=== PATIENT | male | born 1945 | race Caucasian/White ===

== ENCOUNTER 2019-01-22 01:38 | Emergency (ER) | payer MEDICARE, BC ==
[~2019-01-22] VITALS: Ht 182.9 cm; Wt 84.8 kg
[~2019-01-22 01:38] MED LIST: ALPR0.5T PO; ARIP10TA9 PO; ASPI-1169 PO; ATEN25TA PO; BUPR-51 PO; CLOP75TA15 PO; ESOM40CA PO; HYDR-3974 PO; METH10OR11 PO; NITR0.4T SL; OMEG10006 PO; PRAV20TA4 PO; TRAZ-182 PO; UBID100C45 PO
--- NOTE | 2019-01-22 01:48 | NUR ---
TO BED 4 BIB PARAMEDICS C/O INTERMITTENT NONRADIATING CHEST PRESSURE 6/10 X3 DAYS, PAIN FREE UPON ARRIVAL TO ER. PT WAS GIVEN ASPIRIN 162MG PO AND NITRO 1 SPRAY BY EMS CONGRESSIONAL DISTRICT AIDE. SKIN WARM NONDIAPHORETIC. PT AAOX4 NO ACUTE DISTRESS NOTED, RESP EVEN AND UNLABORED. PLACE PT ON CARDIAC MONITORING, CONTINUOUS POX. PENDING ER MD LIN. SL 20G TO [facility] CONGRESSIONAL DISTRICT AIDE.
--- NOTE | 2019-01-22 01:48 | NUR ---
Note undone in EDM - 01/22/19 at 0319 by TARUN TO BED 4 BIB PARAMEDICS C/O INTERMITTENT NONRADIATING CHEST PRESSURE 11/22 SINCE 2129, PAIN FREE UPON ARRIVAL TO ER. PT WAS GIVEN ASPIRIN 162MG PO AND NITRO 1 SPRAY BY EMS RECONCILIATION MANAGER. SKIN WARM NONDIAPHORETIC. PT AAOX4 NO ACUTE DISTRESS NOTED, RESP EVEN AND UNLABORED. PLACE PT ON CARDIAC MONITORING, CONTINUOUS POX. PENDING ER MD LIN. SL 20G TO [facility] RECONCILIATION MANAGER.
--- NOTE | 2019-01-22 02:20 | NUR ---
BLOOD DRAWN BY DIRECTOR INFORMATION.
[2019-01-22 02:33] LABS: BASOPHILS % (AUTO) 0.6 % (0.0-2.0); EOSINOPHILS % (AUTO) 2.1 % (0.0-6.0); HEMATOCRIT 35 % (39-51); LYMPHOCYTES # (AUTO) 0.7 /CMM (0.8-4.8); LYMPHOCYTES % (AUTO) 10.8 % (20.0-44.0); MEAN CORPUSCULAR HGB CONC 35 g/dl (31.0-36.0); MEAN CORPUSCULAR VOLUME 90 fL (80-96); MONOCYTES # (AUTO) 0.4 /CMM (0.1-1.30); NEUTROPHILS % (AUTO) 79.5 % (43.0-81.0); PLATELET COUNT (AUTO) 184 /CMM (150-450); RED BLOOD CELL COUNT(AUTO) 3.86 MIL/uL (4.5-6.0); WHITE BLOOD COUNT (AUTO) 6.4 K/uL (4.3-11.0)
[2019-01-22 02:46] LABS: CALCIUM, SERUM 8.4 mg/dL (8.5-10.1); CARBON DIOXIDE 29 mmol/L (21-32); CHLORIDE 98 mmol/L (98-107); GLUCOSE 113 mg/dL (74-106); POTASSIUM 4.5 mmol/L (3.5-5.1); SODIUM SERUM 132 mmol/L (136-145); UREA NITROGEN, BLOOD 12 mg/dL (7-18)
--- NOTE | 2019-01-22 03:22 | NUR ---
ER MD AT BEDSIDE TALKING TO PT REGARIDNG LAB RESULTS. PENDING DISPOSITION.
--- NOTE | 2019-01-22 03:51 | NUR ---
IV removed. Catheter intact and site benign. Pressure and 4x4 applied to site. No bleeding noted. Patient discharged to home in stable condition. Written and verbal after care instructions given. Patient verbalizes understanding of instruction. ambulatory with a steady gait noted. pt aaox4 no acute distress noted, resp even and unlabored. pt remains pain free at this time.
[2019-01-22 03:52] VITALS: BP 144/75
== END 2019-01-22 03:53 | disposition home or self-care (01) ==
LOC: ER 02:28
DX: R07.89 Other chest pain (principal); I10 Essential (primary) hypertension; I25.2 Old myocardial infarction; I48.91 Unspecified atrial fibrillation; I25.10 Atherosclerotic heart disease of native coronary artery without angina pectoris; J45.909 Unspecified asthma, uncomplicated; Z98.890 Other specified postprocedural states; Z95.818 Presence of other cardiac implants and grafts; Z88.6 Allergy status to analgesic agent; Z88.5 Allergy status to narcotic agent; Z79.82 Long term (current) use of aspirin; Z79.899 Other long term (current) drug therapy
CPT/HCPCS: 36415; 71045-TC; 80048-TC; 84484-TC; 85025-TC

== ENCOUNTER 2019-07-14 23:35 | Inpatient (IN) | payer MEDICARE, BC ==
[~2019-07-14] VITALS: Ht 180.3 cm; Wt 86.2 kg
--- NOTE | 2019-07-14 23:45 | NUR ---
DR BENSON AT BEDSIDE
--- NOTE | 2019-07-14 23:45 | NUR ---
PT [id number] C/O MIDSTERNAL CHEST PAIN RADIATING TO L SHOUDER AND BACK, PRESSURE LIKE 7/10 SINCE 2229. NAUSEA, SOB. GIVEN 1 SPRAY NITRO 0.4 AND ASA 325.PT AAOX4, BREATHING EVEN ADN UNLABORED ON RA W/ NAD NOTED. PT CONNECTED TO THE MONITOR AND POX
--- NOTE | 2019-07-14 23:50 | NUR ---
XRAY AT BEDSIDE
[2019-07-14 23:54] LABS: BASOPHILS % (AUTO) 0.5 % (0.0-2.0); HEMATOCRIT 38 % (39-51); HEMOGLOBIN 12.9 g/dL (13.5-17.5); LYMPHOCYTES # (AUTO) 1.1 /CMM (0.8-4.8); LYMPHOCYTES % (AUTO) 15.8 % (20.0-44.0); MEAN CORPUSCULAR HGB CONC 34 g/dl (31.0-36.0); MEAN CORPUSCULAR VOLUME 92 fL (80-96); MONOCYTES # (AUTO) 0.7 /CMM (0.1-1.30); MONOCYTES % (AUTO) 10.1 % (2.0-12.0); NEUTROPHILS # (AUTO) 4.8 /CMM (1.8-8.9); NEUTROPHILS % (AUTO) 71.6 % (43.0-81.0); PLATELET COUNT (AUTO) 166 /CMM (150-450); RED BLOOD CELL COUNT(AUTO) 4.13 MIL/uL (4.5-6.0); WHITE BLOOD COUNT (AUTO) 6.7 K/uL (4.3-11.0)
--- NOTE | 2019-07-14 23:57 | NUR ---
EKG AT BEDSIDE
[2019-07-14] MEDS ORDERED: hydrALAZINE HCL IV 20 MG VIAL ONE (23:59)
[2019-07-15] MEDS ORDERED: hydrALAZINE HCL IV 20 MG VIAL IV ONE
[2019-07-15 00:02] LABS: CALCIUM, SERUM 9.1 mg/dL (8.5-10.1); CARBON DIOXIDE 31 mmol/L (21-32); CHLORIDE 96 mmol/L (98-107); CREATININE 0.8 mg/dL (0.6-1.3); GLUCOSE 88 mg/dL (74-106); POTASSIUM 4.5 mmol/L (3.5-5.1); SODIUM SERUM 130 mmol/L (136-145); UREA NITROGEN, BLOOD 11 mg/dL (7-18)
[2019-07-15 00:13] LABS: ALANINE AMINOTRANSFERASE 24 U/L (12-78); ALBUMIN 3.9 g/dL (3.4-5.0); ALKALINE PHOSPHATASE 103 U/L (46-116); ASPARTATE AMINOTRANSFERASE 26 U/L (15-37); B-TYPE NATRIURETIC PEPTIDE 195 PG/ML (0-125); BILIRUBIN,DIRECT 0.1 mg/dL (0.0-0.2); BILIRUBIN,TOTAL 0.5 mg/dL (0.2-1.0); TOTAL PROTEIN, SERUM 6.8 g/dL (6.4-8.2)
--- NOTE | 2019-07-15 00:42 | NUR ---
BED ASSIGNMENT 326-2
[2019-07-15] MEDS ORDERED: ACETAMINOPHEN 325 MG TABLET PO PRN (01:00)
[2019-07-15] MEDS ORDERED: ALPRAZOLAM 0.5 MG TABLET PO PRN (01:00)
[2019-07-15] MEDS ORDERED: TRAZODONE 50 MG TABLET PO PRN (01:00)
[2019-07-15] MEDS ORDERED: NITROGLYCERIN 0.4 MG/TAB BOTTLE SL PRN (01:00)
[2019-07-15] MEDS ORDERED: ONDANSETRON HCL/PF 4 MG/2 ML VIAL IVP PRN (01:00)
--- NOTE | 2019-07-15 01:53 | NUR ---
REPORT GIVEN TO MARY BEASLEY
--- NOTE | 2019-07-15 02:26 | NUR ---
pt transferred to room in stable condition
[2019-07-15 02:56] VITALS: BP 144/75
[2019-07-15] MEDS: ALPRAZOLAM 0.5 MG TABLET PO PRN (03:15)
[2019-07-15] MEDS: TRAZODONE 50 MG TABLET PO PRN (03:16)
[2019-07-15 04:37] VITALS: BP 145/75
[2019-07-15] MEDS ORDERED: HYDROCODONE/APAP 5/325MG 1 EACH TABLET PO SCH (06:00)
[2019-07-15] MEDS ORDERED: METHADONE HCL 10 MG/ML PO SCH (06:00)
[2019-07-15 06:18] LABS: BASOPHILS % (AUTO) 0.3 % (0.0-2.0); EOSINOPHILS % (AUTO) 1.7 % (0.0-6.0); HEMATOCRIT 39 % (39-51); HEMOGLOBIN 13.3 g/dL (13.5-17.5); LYMPHOCYTES # (AUTO) 1.1 /CMM (0.8-4.8); LYMPHOCYTES % (AUTO) 17.2 % (20.0-44.0); MEAN CORPUSCULAR HGB CONC 34 g/dl (31.0-36.0); MEAN CORPUSCULAR VOLUME 91 fL (80-96); MONOCYTES # (AUTO) 0.6 /CMM (0.1-1.30); MONOCYTES % (AUTO) 8.7 % (2.0-12.0); NEUTROPHILS # (AUTO) 4.6 /CMM (1.8-8.9); NEUTROPHILS % (AUTO) 72.1 % (43.0-81.0); PLATELET COUNT (AUTO) 158 /CMM (150-450); RED BLOOD CELL COUNT(AUTO) 4.26 MIL/uL (4.5-6.0); WHITE BLOOD COUNT (AUTO) 6.3 K/uL (4.3-11.0)
--- NOTE | 2019-07-15 06:53 | NUR ---
FOAM DISPENSER NOTES AWAKE & RESPONSIVE. NOT IN ANY DISTRESS. NO SOB NOTED. DENIES ANY PAIN OR DISCOMFORT AT THIS TIME. ON TELE SR @ 60 WITH IV-HL PATENT & INTACT. MONITORED ACCORDINGLY. CALL LIGHT WITHIN REACH. BED IN LOWEST POSITION. SR UP X 2 FOR SAFETY. WILL ENDORSE TO NEXT SHIFT.
[2019-07-15 07:06] LABS: ALANINE AMINOTRANSFERASE 22 U/L (12-78); ALBUMIN 3.9 g/dL (3.4-5.0); ALKALINE PHOSPHATASE 91 U/L (46-116); ASPARTATE AMINOTRANSFERASE 24 U/L (15-37); BILIRUBIN,TOTAL 0.8 mg/dL (0.2-1.0); CALCIUM, SERUM 9.1 mg/dL (8.5-10.1); CARBON DIOXIDE 26 mmol/L (21-32); CHLORIDE 96 mmol/L (98-107); CREATININE 0.9 mg/dL (0.6-1.3); GLUCOSE 78 mg/dL (74-106); PHOSPHORUS 3.4 mg/dL (2.5-4.9); POTASSIUM 4.2 mmol/L (3.5-5.1); SODIUM SERUM 131 mmol/L (136-145); TOTAL PROTEIN, SERUM 6.6 g/dL (6.4-8.2); UREA NITROGEN, BLOOD 10 mg/dL (7-18)
[2019-07-15 07:16] LABS: CHOLESTEROL 142 mg/dL (<200); HDL CHOLESTEROL 82 mg/dL (40-60); LDL 52 mg/dL (0-99); THYROID STIMULATING HORMONE 3.254 uIU/mL (0.358-3.74); TRIGLYCERIDES 27 mg/dL (30-150)
[2019-07-15] MEDS: PANTOPRAZOLE 40 MG TABLET.DR PO SCH (07:51)
[2019-07-15 08:00] VITALS: BP 121/58
--- NOTE | 2019-07-15 08:00 | NUR ---
Selene/RN Opening Note Received Patient in bed, AO x 4, able to responds all stimuli. No s/s of respiratory distress, skin is warm to touch clean/dry, intact IV site. Pt signed on CT angiogram consent form. keep lower position if bed with elevated HOB. Call light within reach, will continue to monitor.
[2019-07-15] MEDS ORDERED: PRAVASTATIN SODIUM 20 MG TABLET PO SCH (09:00)
[2019-07-15] MEDS ORDERED: Medication Not On Formulary EA (Esomeprazole Mag Trihydrate (Nexium) 40 MG) PO SCH (09:00)
[2019-07-15] MEDS ORDERED: Medication Not On Formulary EA (Ubidecarenone (Co Q-10) 100 MG) PO SCH (09:00)
[2019-07-15] MEDS ORDERED: OMEGA PO SCH (09:00)
[2019-07-15] MEDS ORDERED: FATTY ACIDS PO SCH (09:00)
[2019-07-15] MEDS: BUPROPION XL 150 MG TAB.ER.24 PO SCH (09:13)
[2019-07-15] MEDS: ASPIRIN 81 MG TAB.CHEW PO SCH (09:14)
[2019-07-15] MEDS: CLOPIDOGREL BISULFATE 75 MG TABLET PO SCH (09:14)
[2019-07-15] MEDS: ATORVASTATIN 10 MG TABLET PO SCH (09:14)
[2019-07-15] MEDS: ATENOLOL 25 MG TABLET PO SCH (09:14)
[2019-07-15] MEDS ORDERED: ATOR20TA PO (10:20)
[2019-07-15] MEDS ORDERED: VALS80TA31 PO (10:20)
[2019-07-15] MEDS ORDERED: ALBU18HF2 IH (10:20)
[2019-07-15] MEDS ORDERED: MONT10TA22 PO (10:20)
[2019-07-15] MEDS ORDERED: RANI300T4 PO (10:20)
--- NOTE | 2019-07-15 11:00 | NUR ---
Patient left to CT angiogram in stable condition, accompanied by staffs.
[2019-07-15] MEDS ORDERED: METOPROLOL TARTRATE INJ 5 MG/5 ML AMPUL IVP PRN (11:30)
[2019-07-15] MEDS ORDERED: IV NS 0.9% 500 ML IV ONE (11:30)
[2019-07-15] MEDS ORDERED: NITROGLYCERIN 0.4 MG/TAB BOTTLE SL ONE (11:30)
[2019-07-15] MEDS ORDERED: NITROGLYCERIN 0.4 MG/TAB BOTTLE ONE (11:41)
[2019-07-15] MEDS ORDERED: IOHEXOL-350 100 ML VIAL IV ONE (11:47)
[2019-07-15] MEDS ORDERED: IV NS 0.9% 250 ML IV ONE (11:47)
[2019-07-15 12:00] VITALS: BP 110/57
--- NOTE | 2019-07-15 12:00 | NUR ---
Patient back from CT angiogram, denies any discomfort, in stable condition.
[2019-07-15] MEDS ORDERED: ALBUTEROL FS 2.5 MG/3 ML VIAL.NEB NEB PRN (13:30)
[2019-07-15 16:00] VITALS: BP 126/45
--- NOTE | 2019-07-15 18:30 | NUR ---
Tele/RN Closing note Patient in bed comfortably, denies any chest pain or discomfort, no s/s of allergic reaction from angio gram, skin is warm to touch, clean/dry. Respiratory even and unlabored, keep lower position of bed with elevated HOB. Call light within reach, will endorse to care analyst.
[2019-07-15 20:00] VITALS: BP 132/76
[2019-07-15] MEDS: FAMOTIDINE (20 MG) 20 MG TABLET PO SCH (21:21)
[2019-07-15] MEDS ORDERED: ATORVASTATIN 10 MG TABLET PO SCH (22:00)
--- NOTE | 2019-07-15 22:09 | NUR ---
RN NOTES: ROOM MOVE FROM 326-2 TO 308-2, EXPLAINED TO HIM THE REASON FOR ROOM CHANGE, HE AGREED, PATIENT AND BELONGINGS TRANSFERRED TO 308-2.
--- NOTE | 2019-07-15 23:58 | NUR ---
RN NOTES: HE IS STILL AWAKE READING HIS NOTES, CALLED TO SEE HIM HE VERBALIZED HE FELT PAIN ON THE CENTRAL CHEST ARE, LIKE CRAMPING PAIN, RADIATING TO THE LEFT SIDE OF THE SHOULDER AND HE FEEL A BIT NAUSEATED, V/S CHECKED BP-167/73 DC-58 SINUS BRADYCARDIA SPO2-99% ROOM AIR. NITRO SL GIVEN.
[2019-07-16] VITALS: BP 135/77
--- NOTE | 2019-07-16 00:05 | NUR ---
RN NOTES: RE-ASSESSED HE VERBALIZED HE FEELS MUCH BETTER, THE PAIN SUBSIDE, HE STILL FEEL A LITTLE NAUSEATED, HE REQUEST NOT TO GIVE THE SECOND DOSE OF NITRO HE WANTS TO BE RE-ASSES AGAIN IN 5 MIN.
--- NOTE | 2019-07-16 00:12 | NUR ---
RN NOTES: -DR. COREAS NOTIFIED ABOUT PATIENT CHEST PAIN AND BP-167/73 WI-58, HE ORDERED TO DISCONTINUE PRN METOPROLOL AND CHANGE TO HYDRALAZINE 25 MG Q6H PRN FOR SBP.150, NOTED AND CARRIED OUT -0015-PHARMACY CALLED AND SPOKE WITH TUAN NOTIFIED ABOUT PMD NEW ORDER, IT WILL BE RELEASE IN [place].
[2019-07-16] MEDS ORDERED: hydrALAZINE HCL 25 MG TABLET PO PRN (00:30)
--- NOTE | 2019-07-16 00:30 | NUR ---
RN NOTES: PRN MEDS RELEASE IN [place], PATIENT RE-ASSESSED, HE CLAIMED PAIN SUBSIDE, RE-CHECKED BP-134/74 OK-54, HYDRALAZINE IS FOR SBP>150, NOT GIVEN RETURNED BACK IN [place]. EXPLAINED TO PATIENT. -HE REQUEST FOR HIS PRN TRAZADONE AND ANTI ANXIETY. -GIVEN WITH INTERVALS.
[2019-07-16] MEDS: TRAZODONE 50 MG TABLET PO PRN (00:43)
[2019-07-16] MEDS: ALPRAZOLAM 0.5 MG TABLET PO PRN (00:43)
--- NOTE | 2019-07-16 01:44 | NUR ---
RN NOTES: -ABLE TO REST AND SLEEP, CALL LIGHT WITHIN EASY REACH, BED LOW AND LOCKED,SIDE RAILS UPX2, ON CLOSE WATCH.
[2019-07-16 04:00] VITALS: BP 130/70
[2019-07-16 04:47] VITALS: BP 130/70
--- NOTE | 2019-07-16 06:39 | NUR ---
RN NOTES: AWAKE, HE CLAIMED HE WAS ABLE TO SLEEP AND REST UNLIKE THE OTHER NIGHT HE DID NOT SLEEP BECAUSE OF HIS ROOM MATE, NO CHEST PAIN OR ANY DISCOMFORT.LATEST HR-50, SINUS BRADYCARDIA, ENDORSED FOR CONTINUITY OF CARE.CALL LIGHT WITHIN EASY REACH.
--- NOTE | 2019-07-16 07:35 | NUR ---
TELE/RN OPENING NOTES RECEIVED PATIENT AWAKE AND ORIENTED X4. NO CHEST PAIN OR ANY DISCOMFORT. LATEST HR-46, SINUS BRADYCARDIA, BED IN LOWEST POSITION AND LOCKED. SIDE RAILS UP X2. CALL LIGHT WITHIN EASY REACH. WILL CONTINUE TO MONITOR.
[2019-07-16] MEDS: PANTOPRAZOLE 40 MG TABLET.DR PO SCH (07:47)
[2019-07-16 08:00] VITALS: BP 130/71
--- NOTE | 2019-07-16 08:02 | NUR ---
TELE/RN NOTES PATIENT IS ON MS PER MD ORDER.
[2019-07-16] MEDS: ATORVASTATIN 10 MG TABLET PO SCH (08:12)
[2019-07-16] MEDS: CLOPIDOGREL BISULFATE 75 MG TABLET PO SCH (08:15)
[2019-07-16] MEDS: ASPIRIN 81 MG TAB.CHEW PO SCH (08:15)
[2019-07-16 08:16] VITALS: BP 130/71
[2019-07-16] MEDS: FAMOTIDINE (20 MG) 20 MG TABLET PO SCH (08:16)
[2019-07-16] MEDS: ATENOLOL 25 MG TABLET PO SCH (08:16)
[2019-07-16] MEDS: BUPROPION XL 150 MG TAB.ER.24 PO SCH (08:16)
[2019-07-16] MEDS ORDERED: VALSARTAN 80 MG TABLET PO SCH (09:00)
[2019-07-16] MEDS ORDERED: MONTELUKAST SODIUM (10MG) 10 MG TABLET PO SCH (09:00)
--- NOTE | 2019-07-16 12:11 | NUR ---
MS/RN NOTES PATIENT IS ALERT ORIENTED X4. PATIENT DENIES PAIN AT THIS TIME. IN ROOM AIR AND SATURATION IS AT 98%. RESPIRATION REGULAR AND UNLABORED. THE PATIENT IN NO APPARENT DISTRESS. SEEN AND EXAMINED BY MD WITH ORDERS MADE AND CARRIED OUT. PATIENT DISCHARGED AT 12:10. PATIENT WAS GIVEN DISCHARGED INSTRUCTIONS AND PATIENT VERBALIZED UNDERSTANDING. THE PATIENT LEFT THE HOSPITAL IN STABLE CONDITION, ACCOMPANIED BY FREYA PATIENT'S FRIEND. ON A PRIVATE CAR.
== END 2019-07-16 12:00 | disposition home or self-care (01) | DRG 303 ==
LOC: ER 23:36 → TELE 07-15 02:06 → MED 07-16 09:03
PROVIDERS: ADMIT Internal Medicine; ATTEND Internal Medicine
DX: I25.10 Atherosclerotic heart disease of native coronary artery without angina pectoris (principal); I48.91 Unspecified atrial fibrillation; E78.5 Hyperlipidemia, unspecified; D63.8 Anemia in other chronic diseases classified elsewhere; F32.9 Major depressive disorder, single episode, unspecified; G89.29 Other chronic pain; I10 Essential (primary) hypertension; I25.2 Old myocardial infarction; J45.909 Unspecified asthma, uncomplicated; Z79.82 Long term (current) use of aspirin; Z95.5 Presence of coronary angioplasty implant and graft
CPT/HCPCS: 36415; 71045-TC; 75574; 80048-TC; 80053-TC; 80061-TC; 80076-TC; 83735-TC; 83880; 84100-TC; 84443-TC; 84484-TC; 85025-TC; 85730-TC; 87081-TC; 93307-TC; G0378; J0360; J7050; Q9967

== ENCOUNTER 2020-01-07 07:15 | Inpatient (IN) | payer MEDICARE, BC ==
[~2020-01-07] VITALS: Ht 182.9 cm; Wt 88.5 kg
[~2020-01-07 07:15] MED LIST changes: +ALBU18HF2 IH; -ALPR0.5T PO; -ARIP10TA9 PO; -ASPI-1169 PO; -ATEN25TA PO; +ATOR20TA PO; -BUPR-51 PO; -METH10OR11 PO; +MONT10TA22 PO; -NITR0.4T SL; -PRAV20TA4 PO; +RANI300T4 PO; -TRAZ-182 PO; +VALS80TA31 PO
--- NOTE | 2020-01-07 07:15 | NUR ---
PT BIBRA FROM HOME C/O CHEST PAIN AND HIGH BLOOD PRESSURE. PT IS AAOX4, NOT IN RESPIRATORY DISTRESS, HOOKED TO CARD HAND, KEPT RESTED AND COMFORTABLE. WILL CONTINUE TO MONITOR.
--- NOTE | 2020-01-07 07:23 | NUR ---
PT SEEN AND EXAMINED BY .
[2020-01-07] MEDS ORDERED: NITROGLYCERIN PACKET 1 GM PACKET ONE (07:25)
[2020-01-07] MEDS ORDERED: NITROGLYCERIN PACKET 1 GM PACKET TD ONE (07:30)
--- NOTE | 2020-01-07 07:30 | NUR ---
IV LINE ESTABLISHED BLOOD DRAWN AND SENT TO LAB.
[2020-01-07 07:46] LABS: BASOPHILS % (AUTO) 0.3 % (0.0-2.0); EOSINOPHILS % (AUTO) 1.9 % (0.0-6.0); HEMATOCRIT 39 % (39-51); LYMPHOCYTES # (AUTO) 0.6 /CMM (0.8-4.8); LYMPHOCYTES % (AUTO) 12.2 % (20.0-44.0); MEAN CORPUSCULAR HGB CONC 33 g/dl (31.0-36.0); MEAN CORPUSCULAR VOLUME 92 fL (80-96); MONOCYTES # (AUTO) 0.4 /CMM (0.1-1.30); MONOCYTES % (AUTO) 8.5 % (2.0-12.0); NEUTROPHILS % (AUTO) 77.1 % (43.0-81.0); PLATELET COUNT (AUTO) 224 /CMM (150-450); RED BLOOD CELL COUNT(AUTO) 4.23 MIL/uL (4.5-6.0); WHITE BLOOD COUNT (AUTO) 5.1 K/uL (4.3-11.0)
--- NOTE | 2020-01-07 07:48 | NUR ---
MOVE SHEET SUBMITTED AND CALLED FOR A TELE BED.
[2020-01-07 07:51] LABS: CALCIUM, SERUM 9.3 mg/dL (8.5-10.1); CARBON DIOXIDE 29 mmol/L (21-32); CHLORIDE 94 mmol/L (98-107); CREATININE 0.8 mg/dL (0.6-1.3); GLUCOSE 95 mg/dL (74-106); POTASSIUM 4.2 mmol/L (3.5-5.1); SODIUM SERUM 130 mmol/L (136-145); UREA NITROGEN, BLOOD 9 mg/dL (7-18)
--- NOTE | 2020-01-07 08:19 | NUR ---
COVID SWAB OBTAINED AND SENT TO LAB.
[2020-01-07] MEDS ORDERED: DOCUSATE SODIUM 100 MG CAPSULE PO PRN (08:30)
[2020-01-07] MEDS ORDERED: MAG HYDROX/AL HYDROX/SIMETH 30 ML UDC PO PRN (08:30)
[2020-01-07] MEDS ORDERED: IV NS 0.9% 500 ML IV PRN (08:30)
[2020-01-07] MEDS ORDERED: ACETAMINOPHEN 325 MG TABLET PO PRN (08:30)
[2020-01-07] MEDS ORDERED: ONDANSETRON HCL/PF 4 MG/2 ML VIAL IVP PRN (08:30)
[2020-01-07] MEDS ORDERED: MORPHINE SULFATE INJ 2 MG/ML DISP.SYRIN IV PRN (08:30)
[2020-01-07] MEDS ORDERED: NITROGLYCERIN 0.4 MG/TAB BOTTLE SL PRN (08:30)
[2020-01-07] MEDS ORDERED: ALPR1TAB2 PO (09:00)
[2020-01-07] MEDS ORDERED: OLOP30.5 NS (09:00)
[2020-01-07] MEDS ORDERED: AROM1FL. PO (09:00)
[2020-01-07] MEDS ORDERED: [UNRECOGNIZED DRUG - OTHER] PO (09:00)
[2020-01-07] MEDS ORDERED: TRAZ-257 PO (09:00)
[2020-01-07] MEDS ORDERED: CHOL10002 PO (09:00)
[2020-01-07] MEDS ORDERED: PSYL3.4P6 PO (09:00)
[2020-01-07] MEDS ORDERED: OLAN2.5T3 PO (09:00)
[2020-01-07] MEDS ORDERED: LIDO30AD10 TP (09:00)
[2020-01-07] MEDS ORDERED: [UNRECOGNIZED DRUG - OTHER] PO (09:00)
[2020-01-07] MEDS ORDERED: [UNRECOGNIZED DRUG - OTHER] PO (09:00)
[2020-01-07] MEDS ORDERED: SENN-291 PO (09:00)
[2020-01-07] MEDS ORDERED: AREDS 2 FORMULA PO (09:00)
[2020-01-07] MEDS ORDERED: METH5TAB2 PO (09:00)
[2020-01-07] MEDS ORDERED: NITR0.4T48 SL (09:00)
[2020-01-07] MEDS ORDERED: BUPR300T52 PO (09:00)
[2020-01-07] MEDS ORDERED: HYDR-500 PO (09:00)
[2020-01-07] MEDS ORDERED: ASPI-1152 PO (09:00)
[2020-01-07] MEDS ORDERED: FENT1PAT4 TD (09:00)
[2020-01-07] MEDS ORDERED: MULT-754 PO (09:00)
--- NOTE | 2020-01-07 09:03 | NUR ---
CALLED MAIN LAB FOR COVID RESULT. STILL PENDING PER CLS.
--- NOTE | 2020-01-07 09:35 | NUR ---
received a call from hernán Garcia for negative covid 19 result
--- NOTE | 2020-01-07 09:36 | NUR ---
CALLED HOUSE SUP FOR TELE BED PT IS COVID NEGATIVE.
--- NOTE | 2020-01-07 10:13 | NUR ---
GOT BED 310-2
--- NOTE | 2020-01-07 10:19 | NUR ---
REPORT GIVEN TO RAMOS HOLT FOR SHON.
[2020-01-07] MEDS: ASPIRIN 81 MG TAB.CHEW PO SCH (10:26)
[2020-01-07] MEDS ORDERED: ENOXAPARIN SODIUM 40 MG/0.4 ML DISP.SYRIN SQ SCH ×2 (10:27→11:00)
--- NOTE | 2020-01-07 10:27 | NUR ---
AT BEDSIDE FOR EVAL.
[2020-01-07 10:45] VITALS: BP 155/92
[2020-01-07] MEDS ORDERED: VALSARTAN 80 MG TABLET PO SCH (11:00)
[2020-01-07] MEDS ORDERED: CLOPIDOGREL BISULFATE 75 MG TABLET PO SCH ×2 (11:00→21:00)
--- NOTE | 2020-01-07 11:17 | NUR ---
RN ADMITTING NOTE Patient arrived onto unit around 1045. Patient has no complaints of chest pain at this time, however he said he just feels a little pressure. Tele monitor is SR with 1st degree block HR 90s. Patient is saturating 98% on RA. BP 155/92, HR 92, T 98.4F. Patient is 195 lbs. IV line in the RAC#18g is clean and intact s/l, flushing well. Skin assessed and skin is intact. Only old surgical incisions present from previous surgeries the patient has had in the past. Spoke with pharmacy and informed them that patient is allergic to opioids and has "itchiness" as a reaction, no other symptoms. All belongings are with the patient. Bed is in lowest position, side rails x3 in upright position, call light is within reach, fall safety and aspiration precautions enforced. Will continue with admission process. is aware.
[2020-01-07] MEDS: METOPROLOL TARTRATE 50 MG TABLET PO SCH ×2 (11:32→17:35)
[2020-01-07 16:19] LABS: APPEARANCE,URINE CLEAR (CLEAR); BILIRUBIN,URINE NEGATIVE (NEGATIVE); BLOOD, URINE NEGATIVE Ery/uL (NEGATIVE); COLOR,URINE YELLOW (YELLOW); CREATININE, URINE 56.7 MG/DL (30.0-125.0); KETONES,URINE NEGATIVE (NEGATIVE); LEUKOCYTE ESTERASE ,URINE NEGATIVE (NEGATIVE); NITRITE, URINE NEGATIVE (NEGATIVE); PROTEIN,URINE NEGATIVE (NEGATIVE); UGLUCOSE NEGATIVE (NEGATIVE); URINE TOTAL PROTEIN 8.6 mg/dL (0-11.9); UROBILINOGEN,URINE 0.2 EU/dL (0.2)
[2020-01-07 17:08] LABS: EOSINOPHIL,URINE None Seen
[2020-01-07] MEDS ORDERED: LORAZEPAM INJ 2 MG/ML VIAL IV ONE (18:00)
--- NOTE | 2020-01-07 19:15 | NUR ---
LIST OF FIRST JOB IDEAS NOTES RECEIVED ON BED A/O X4,ABLE TO VERBALIZED NEEDS,DENIES CHEST PAIN AT THE MOMENT,TELE SR-45 ON TELE MONITOR.AMBULATE INSIDE THE ROOM.SALINE LOCK RIGHT AC INTACT AND PATENT.CALL LIGHT IN REACH,NEEDS ANTICIPATED.
--- NOTE | 2020-01-07 19:26 | NUR ---
RN CLOSING NOTE patient is resting in bed, A/O x4, showing no signs of acute distress or SOB, stable on RA. IV line in the RAC #18g is clean and intact s/l. Around 1800, patient told me that he takes psych medications for PTSD and they have been reconciled. Texted Iram Vasquez and she told me to confirm with the outpatient pharmacy for the correct dosage. I called the pharmacy and they are closed at this time. Per Iram, ok to continue the Xanax and Trazodone for now, and to follow-up with OP pharmacy tomorrow for the rest of the medications. All patient needs met, all due medications given, patient kept clean and dry throughout shift. Bed is in lowest position, side rails x3 in upright position, call light is within reach. Fall safety and aspiration precautions enforced. Will endorse to night shift manager.
[2020-01-07 20:00] VITALS: BP 143/73
--- NOTE | 2020-01-07 21:30 | NUR ---
HEALTH SPECIALIST NOTES GIVEN COLACE 100MG PO ORDERED PER PATIENT REQUEST.
[2020-01-07] MEDS ORDERED: ALPRAZOLAM 1 MG TABLET PO SCH (22:00)
[2020-01-07] MEDS ORDERED: TRAZODONE 50 MG TABLET PO SCH (22:00)
[2020-01-07] MEDS ORDERED: SIMVASTATIN 20 MG TABLET PO SCH (22:00)
[2020-01-08] VITALS: BP 118/52
--- NOTE | 2020-01-08 | NUR ---
BINDER CUTTER NOTES LOPRESSOR 50MG PO HELD FOR LOW HEART RATE OF 43,ON TELE MONITOR.BP 118/52
[2020-01-08 04:00] VITALS: BP 121/61
--- NOTE | 2020-01-08 05:45 | NUR ---
MANUFACTURING TEAM LEADER NOTES LOPRESSOR 50MG PO HELD FOR LOW HEART RATE OF 46 ON TELE MONITOR.
[2020-01-08] MEDS: METOPROLOL TARTRATE 50 MG TABLET PO SCH ×2 (05:46)
--- NOTE | 2020-01-08 06:04 | NUR ---
DIRECTOR OF ENTERPRISE STRATEGY NOTES SINUS JESS THRU OUT SHIFT, LOPRESSOR 50MG HELD FOR HEART RATE BELOW 50,DENIES CHEST PAIN.SLEEP WELL WITH XANAX AND TRAZODONE.ALL DUE MEDS ADMINISTERED,TAKEN WELL.NEGATIVE FOR ASPIRATION.CALL LIGHT IN REACH,NEEDS ATTENDED.WILL ENDORSE TO DAY NURSE FOR SHON.
[2020-01-08 07:01] LABS: BASOPHILS % (AUTO) 0.3 % (0.0-2.0); EOSINOPHILS % (AUTO) 3.1 % (0.0-6.0); HEMATOCRIT 39 % (39-51); HEMOGLOBIN 13.1 g/dL (13.5-17.5); LYMPHOCYTES # (AUTO) 0.7 /CMM (0.8-4.8); LYMPHOCYTES % (AUTO) 13.2 % (20.0-44.0); MEAN CORPUSCULAR HGB CONC 34 g/dl (31.0-36.0); MEAN CORPUSCULAR VOLUME 91 fL (80-96); MONOCYTES # (AUTO) 0.6 /CMM (0.1-1.30); MONOCYTES % (AUTO) 10.9 % (2.0-12.0); NEUTROPHILS # (AUTO) 3.8 /CMM (1.8-8.9); NEUTROPHILS % (AUTO) 72.5 % (43.0-81.0); PLATELET COUNT (AUTO) 201 /CMM (150-450); RED BLOOD CELL COUNT(AUTO) 4.29 MIL/uL (4.5-6.0); WHITE BLOOD COUNT (AUTO) 5.2 K/uL (4.3-11.0)
[2020-01-08 07:02] LABS: ALBUMIN 3.4 g/dL (3.4-5.0); BILIRUBIN,TOTAL 0.7 mg/dL (0.2-1.0); CALCIUM, SERUM 8.6 mg/dL (8.5-10.1); CREATININE 0.8 mg/dL (0.6-1.3); MAGNESIUM 2.2 mg/dL (1.8-2.4); PHOSPHORUS 3.5 mg/dL (2.5-4.9); POTASSIUM 4.2 mmol/L (3.5-5.1); TOTAL PROTEIN, SERUM 6.1 g/dL (6.4-8.2)
[2020-01-08 07:11] LABS: THYROID STIMULATING HORMONE 1.186 uIU/mL (0.358-3.74); URIC ACID 4.1 mg/dL (2.6-7.2)
--- NOTE | 2020-01-08 08:00 | NUR ---
WEARING APPAREL PRESSER OPENING NOTE RECEIVED PT IN BED. AWAKE ALERT AND ORIENTED X44. NO CARDIAC OR RESPIRATORY DISTRESS NOTED. NO SOB NOTED. SATURATING WELL ON ROOM AIR. BREATHING EVENA ND UNLABORED. ON CARDIAC TELE MONITOR SHOWING NORMAL SINUS RHYTHM WITH HR OF 50S. PT IS AMBULATORY. CONTINENT OF BOWEL AND BLADDER. IV ACCESS NOTED ON R AC G18. INTACT AND PATENT AND FLUSHING WELL. NO S/S OF INFECTION OR INFILTRATION NOTED.SAFETY PRECAUTIONE IN PLACE. BED LOCKED AND IN LOW POSITION, SIDE RAILS UP X2. BED ALARM ON. CALL LIGHT WITHIN REACH. WILL CONT TO MONITOR.
[2020-01-08 08:09] VITALS: BP 143/67
[2020-01-08] MEDS: ASPIRIN 81 MG TAB.CHEW PO SCH (08:46)
[2020-01-08 08:51] VITALS: BP 143/62
[2020-01-08] MEDS ORDERED: VALSARTAN 80 MG TABLET PO SCH (09:00)
[2020-01-08] MEDS ORDERED: SIMV-46 PO (12:42)
[2020-01-08] MEDS ORDERED: VALS80TA2 PO (12:42)
--- NOTE | 2020-01-08 14:00 | NUR ---
REFUSED BODY CHECK PT REFUSED BODY CHECK FOR D/C PER PT, "I DONT HAVE ANY PROBLEMS WITH MY SKIN. IM FINE. I PROMISE."
--- NOTE | 2020-01-08 15:00 | NUR ---
D/C HOME PT DISCHARGED HOME IN STABLE CONDITION. ALL D/C INSTRUCTIONS AND PAPERWORKS PROVIDED TOP THE PT. EXPLAINED ALL MEDS PRESCRIBED NAD TO BE CONTIONUED IN LAYMENS TERM. PT VERBALIZED UNDERSTANDING. INSTRUCTED PT TO SCHEDULE A F/U APPT WITH HIS PCP AND FITTER MECHANIC IN 1WEEK. PT ACKNOWLEDGED AND AGREED. PT AWAKE ALERT AND ORIENTED X4. NO CARDIAC OR RESPIRATORY DISTRESS NOTED. NO SOB NOTED. SATURATING WELL ON ROOM AIR. BREATHING EVEN AND UNLABORED. IV ACCESS ON R AC G18 REMOVED. NO S/S OF BLEEDING NOTED. DRESSING APPLIED. ASSISTED PT WITH GETTING A TAXI CAB. PT WAS BROUGHT TO THE LOBBY UNTIL HE WAS PICKED UP BY CAB. ALL BELONGINGS/VALUABLES BROUGHT BY THE PT . INVENTORY SIGNED.
== END 2020-01-08 15:25 | disposition home or self-care (01) | DRG 305 ==
LOC: ER 07:16 → TELE 10:21 → MED 01-08 09:50
PROVIDERS: ADMIT Registered Nurse; ATTEND Registered Nurse
DX: I16.0 Hypertensive urgency (principal); E22.2 Syndrome of inappropriate secretion of antidiuretic hormone; E78.5 Hyperlipidemia, unspecified; F43.10 Post-traumatic stress disorder, unspecified; I25.10 Atherosclerotic heart disease of native coronary artery without angina pectoris; I44.7 Left bundle-branch block, unspecified; Z79.891 Long term (current) use of opiate analgesic; G89.29 Other chronic pain; I25.2 Old myocardial infarction; Z95.5 Presence of coronary angioplasty implant and graft; Z98.1 Arthrodesis status; Z79.02 Long term (current) use of antithrombotics/antiplatelets; V89.2XXS Person injured in unspecified motor-vehicle accident, traffic, sequela; E86.1 Hypovolemia; Z72.89 Other problems related to lifestyle; R07.9 Chest pain, unspecified
CPT/HCPCS: 36415; 71045-TC; 80048-TC; 80053-TC; 80061-TC; 81000-TC; 82570-TC; 83735-TC; 83935-TC; 84100-TC; 84155-TC; 84300-TC; 84443-TC; 84484-TC; 84550-TC; 85025-TC; 87081-TC; 93307-TC; G0378; J2060

== ENCOUNTER 2021-11-19 06:10 | Emergency (ER) | payer MEDICARE, BC ==
[~2021-11-19] VITALS: Ht 180.3 cm; Wt 99.3 kg
[~2021-11-19 06:10] MED LIST changes: +ALPR1TAB2 PO; +AROM1FL. PO; +ASPI-1420 PO; +BUPR300T52 PO; +CHOL100043 PO; -HYDR-3974 PO; +HYDR-500 PO; +LIDO30AD10 TP; +METH5TAB2 PO; +MULT-754 PO; +NITR0.4T48 SL; +OLAN2.5T3 PO; +OLOP30.5 NS; +PSYL3.4P6 PO; -RANI300T4 PO; +SENN-291 PO; +SIMV-46 PO; +TRAZ-257 PO; -UBID100C45 PO; +VALS80TA2 PO; -VALS80TA31 PO; +[UNRECOGNIZED DRUG - OTHER] PO; +[UNRECOGNIZED DRUG - OTHER] PO; +[UNRECOGNIZED DRUG - OTHER] PO
--- NOTE | 2021-11-19 06:14 | NUR ---
EMT AT BEDSIDE FOR EKG
--- NOTE | 2021-11-19 06:15 | NUR ---
BIBRA39 FROM HOME C/O CP X SINCE 2199 LAST NIGHT. 3 NITRO COMMER[employer]ES INSURANCE AGENT AND 325 ASPIRIN WITH RELIEF. PT DENIES CHEST PAIN AT THIS TIME. PT A/OX4. TOLERATING R/A WELL WITH NO SOB. CONNECTED PT TO POX AND MONITOR. SAFETY MEASURES IN PLACE.
--- NOTE | 2021-11-19 06:18 | NUR ---
DR. LAW MONTAÑO AT PT'S BEDSIDE
[2021-11-19] MEDS ORDERED: ASPIRIN 325 MG TABLET PO ONE (06:30)
[2021-11-19] MEDS ORDERED: NITROGLYCERIN 0.4 MG/TAB BOTTLE SL ONE (06:30)
--- NOTE | 2021-11-19 06:34 | NUR ---
HYPERCIL CORE TRANSFORMER ASSEMBLER AT PT'S BEDSIDE
[2021-11-19 06:59] LABS: BASOPHILS % (AUTO) 0.3 % (0.0-2.0); HEMATOCRIT 36 % (39-51); HEMOGLOBIN 12.3 g/dL (13.5-17.5); LYMPHOCYTES % (AUTO) 16.8 % (20.0-44.0); MEAN CORPUSCULAR HGB CONC 34 g/dl (31.0-36.0); MEAN CORPUSCULAR VOLUME 88 fL (80-96); MONOCYTES # (AUTO) 0.6 K/uL (0.1-1.30); MONOCYTES % (AUTO) 9.9 % (2.0-12.0); NEUTROPHILS # (AUTO) 4.1 K/uL (1.8-8.9); PLATELET COUNT (AUTO) 193 K/uL (150-450); RED BLOOD CELL COUNT(AUTO) 4.06 MIL/uL (4.5-6.0); WHITE BLOOD COUNT (AUTO) 5.8 K/uL (4.3-11.0)
[2021-11-19 07:11] LABS: CALCIUM, SERUM 8.5 mg/dL (8.5-10.1); CARBON DIOXIDE 28 mmol/L (21-32); CHLORIDE 99 mmol/L (98-107); CREATININE 0.9 mg/dL (0.6-1.3); GLUCOSE 86 mg/dL (74-106); POTASSIUM 3.8 mmol/L (3.5-5.1); SODIUM SERUM 132 mmol/L (136-145); UREA NITROGEN, BLOOD 9 mg/dL (7-18)
--- NOTE | 2021-11-19 07:18 | NUR ---
PRODUCT SUPPORT TECHNICIAN AT PT'S BEDSIDE
--- NOTE | 2021-11-19 07:29 | NUR ---
aaox4, breathing even and unlabored, denies chest pain at this time
--- NOTE | 2021-11-19 08:49 | NUR ---
PT AWAKE IN BED, VS STABLE, NEEDS MET, WILL CONTINUE TO MONITOR
--- NOTE | 2021-11-19 09:41 | NUR ---
CALLED DR. BATES AT [phone] FORTUNE AND WAS NOTIFIED THAT DR. BATES WONT BE IN THE OFFICE TILL 1100. WILL CALL LATER
--- NOTE | 2021-11-19 09:59 | NUR ---
LAB AT BEDSIDE FOR REPEAT TROPONIN
--- NOTE | 2021-11-19 11:16 | NUR ---
Patient discharged to home in stable condition. Written and verbal after care instructions given. Patient verbalizes understanding of instruction.
--- NOTE | 2021-11-19 11:16 | NUR ---
IV removed. Catheter intact and site benign. Pressure and 4x4 applied to site. No bleeding noted.
[2021-11-19 11:27] VITALS: BP 121/82
== END 2021-11-19 11:20 | disposition home or self-care (01) ==
LOC: ER 06:11
DX: R07.89 Other chest pain (principal); I10 Essential (primary) hypertension; Z88.8 Allergy status to other drugs, medicaments and biological substances; Z79.899 Other long term (current) drug therapy
CPT/HCPCS: 36415; 71045-TC; 80048-TC; 83880; 84484-TC; 85025-TC